=== PATIENT | female | born 1980 | race Caucasian/White ===

== ENCOUNTER → 2018-10-02 17:27 | Outpatient (CLI) | payer OTHER, SELFPAY ==
--- NOTE | 2018-10-02 17:53 | MRI_ITS ---
HISTORY: bilateral hearing loss x 1 year EXAM/TECHNIQUE: MR Brain Attn IACs WO/W Contrast: 6 cc Gadavist administered intravenously. COMPARISON: None. FINDINGS: # of images incl. paperwork: [phone] MRI IACs: Normal appearance of the bilateral 7th and 8th cranial nerves, CP angles, internal auditory canals, cochlea, and vestibular apparatus. No masses or abnormal enhancement. Posterior fossa structures are unremarkable. MRI brain: 2.3 x 2.0 x 1.8 cm TRV X APX craniocaudad cystic mass centered in the region of the pineal gland, with the pineal gland not identified separate from this. This cystic mass has thin septations within the posterior aspect. The cyst contents are similar to CSF on T2, and mildly hyperintense to CSF on T1 and FLAIR. No soft tissue nodularity or abnormal enhancement associated with the mass. This mass has mild mass-effect upon the tectum, but with no adjacent edema. The remainder of the brain is unremarkable. No other mass. No infarct or hemorrhage. No abnormal enhancement. No hydrocephalus. Flow voids preserved. No acute osseous abnormality. Prominent polyp left maxillary sinus. Paranasal sinuses, mastoid air cells and middle ears otherwise patent. MRI/Brain W/WO Contrast IMPRESSION: No etiology for hearing loss identified. Normal appearance of the IACs and adjacent structures. 2.3 cm in greatest dimension minimally complex cystic mass centered in the pineal region. 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 The lack of nodularity and lack of enhancement argues against neoplasm which is unlikely. However, there is some mass-effect upon the tectum. This might cause ocular symptoms such Parinaud syndrome but would not typically cause hearing loss. Consider nonemergent neurosurgery evaluation and 6-12 month follow-up MRI. at 2302 Reported and signed by: Richardson Thorpe MD Electronically Signed: Richardson Thorpe, at 23:01 EST Tel , Service support ,
== END ==
PROVIDERS: Referring Provider Otolaryngology Otolaryngology/Facial Plastic Surgery; Visit Provider Otolaryngology Otolaryngology/Facial Plastic Surgery
DX: H91.90 Unspecified hearing loss, unspecified ear (principal); H93.19 Tinnitus, unspecified ear
CPT/HCPCS: 70553; A9585

== ENCOUNTER → 2019-02-02 | Outpatient (CLI) | payer OTHER, SELFPAY ==
--- NOTE | 2019-02-02 16:58 | MRI_ITS ---
STUDY: MRI BRAIN WITH AND WITHOUT CONTRAST REASON FOR EXAM: Female, 38 years old. Pineal cyst TECHNIQUE: Standardized multiplanar fat and water weighted pulse sequences were obtained. 12 IV Dotarem was administered for the contrast portion of the examination. COMPARISON: MRI 10/02/2018. FINDINGS: Normal size of the ventricles and extra-axial spaces for the patient's age. Normal white matter tracts of the supratentorial brain. Normal bilateral basal ganglia. Normal thalami. There is no extra-axial fluid accumulation. Normal flow voids within the major intracranial circulation suggesting patency by spin echo criteria. Normal venous enhancement. There is no enhancing intra-axial or extra-axial abnormality. Normal sella turcica, pituitary gland, infundibular stalk, optic chiasm and hypothalamus. There is a stable 2.3 x 2 x 1.8 cm cystic mass which is in the region of the pineal gland this lesion is contiguous to the pineal gland. There is stable septation within its posterior aspect. The lesion demonstrates T2 signal similar to CSF and mildly hyperintense T2 signal to CSF on T1 and FLAIR. There is no enhancement or soft tissue mass with lesion. There is stable mild mass effect on the tectum. Stable left maxillary sinus mucus retention cyst and mild mucosal thickening of the right maxillary sinus with mild increased T2 signal with mild improvement. Normal midbrain, ilene and medulla. Normal cerebellum. Normal basal cisterns. Normal bilateral temporal bones. Normal bilateral internal auditory canals. No demonstrated orbital abnormality, within the constraints of a routine brain study. Normal calvarium and skull base. Normal visualized soft tissue structures. Normal visualized upper cervical spine. 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 There is no enhancement. Continued follow-up recommended with repeat exam in 6 months. Mild improvement of the paranasal sinusitis Electronically Signed: Graeme Aquino, at 22:51 EDT Tel , Service support ,
== END | disposition home or self-care (01) ==
LOC: MRI 16:43
DX: E34.8 Other specified endocrine disorders (principal)
CPT/HCPCS: 70553; A9575